=== PATIENT | female | born 1985 | race Caucasian/White ===

== ENCOUNTER 2019-07-02 13:03 | Inpatient (IN) | payer BC ==
[~2019-07-02] VITALS: Ht 157.5 cm; Wt 69.9 kg
[2019-07-02 13:19] VITALS: Ht 157.5 cm; Wt 69.9 kg
[2019-07-02 14:38] LABS: BASOPHIL % 0.3 % (0-2); PLATELET COUNT 255 x10^3mcL (130-400); RED CELL DISTRIBUTION WIDTH 13.1 % (11.5-14.5)
[2019-07-02 14:43] LABS: ALBUMIN 3.7 g/dL (3.4-5.0); ALKALINE PHOSPHATASE 36 U/L (46-116); ALT/SGPT 30 U/L (14-59); AMYLASE 43 U/L (25-115); AST/SGOT 21 U/L (15-37); BILIRUBIN TOTAL 0.2 mg/dL (0.20-1.00); CALCIUM 8.5 mg/dL (8.5-10.1); CARBON DIOXIDE 32.3 mmol/L (21-32); CHLORIDE SERUM 105 mmol/L (98-107); CREATININE SERUM 0.6 mg/dL (0.6-1.0); GFR1 > 60 mL/min; GLUCOSE SERUM 84 mg/dL (74-106); LIPASE 90 IU/L (73-393); POTASSIUM SERUM 4.1 mmol/L (3.5-5.1); SODIUM SERUM 142 mmol/L (136-145); TOTAL PROTEIN, SERUM 6.8 g/dL (6.4-8.2)
[2019-07-02 17:52] VITALS: BP 101/81
[2019-07-02 20:05] LABS: microscopic required? NO
[2019-07-02 20:20] LABS: urine erythrocyte NEGATIVE (NEGATIVE)
[2019-07-02 20:40] LABS: AMPHETAMINE QUAL UR NONE DETECTED (See below)
[2019-07-02 21:24] VITALS: BP 119/77
[2019-07-03 05:33] VITALS: BP 92/52
[2019-07-03 06:25] LABS: BASOPHIL % 0.4 % (0-2); PLATELET COUNT 198 x10^3mcL (130-400); RED CELL DISTRIBUTION WIDTH 13.3 % (11.5-14.5)
[2019-07-03 06:48] LABS: CALCIUM 7.9 mg/dL (8.5-10.1); CARBON DIOXIDE 27.6 mmol/L (21-32); CHLORIDE SERUM 110 mmol/L (98-107); CREATININE SERUM 0.7 mg/dL (0.6-1.0); GFR1 > 60 mL/min; GLUCOSE SERUM 87 mg/dL (74-106); SODIUM SERUM 143 mmol/L (136-145)
[2019-07-03 09:31] VITALS: BP 111/69
[2019-07-03 13:24] VITALS: BP 115/62
[2019-07-03 16:16] VITALS: BP 115/62
[2019-07-03] MEDS ORDERED: CIPRO500 MG PO (17:09)
[2019-07-03] MEDS ORDERED: IBU600 M2 PO (17:09)
[2019-07-03 17:32] VITALS: BP 115/73
== END 2019-07-03 18:10 | disposition home or self-care (01) | DRG 343 ==
LOC: EDBD 13:03 → ED 13:03 → MU 15:49
PROVIDERS: Emergency Medicine; Family Medicine Addiction Medicine; ADMIT Family Medicine
PROC: 0DTJ4ZZ Resection of Appendix, Percutaneous Endoscopic Approach (ICD-10-PCS; principal; 2019-07-03 07:30)
DX: K35.80 Unspecified acute appendicitis (principal); R30.0 Dysuria; K66.0 Peritoneal adhesions (postprocedural) (postinfection)
CPT/HCPCS: G0378; J0330; J0694; J1170; J1885; J2001; J2270; J2405; J2543; J2704; J2710; J3010; J3490; J7030; J7120; Q0092